=== PATIENT | male | born 1960 | race Two or more races ===

== ENCOUNTER 2025-05-06 20:41 | Emergency (ER) | payer MEDICARE, BC ==
[~2025-05-06] VITALS: Ht 172.7 cm; Wt 77.1 kg
[2025-05-06 21:47] LABS: CALCIUM, SERUM 7.8 mg/dL (8.5-10.1); CREATININE 0.8 mg/dL (0.6-1.3); SODIUM SERUM 145.0 mmol/L (136-145); UREA NITROGEN, BLOOD 7.0 mg/dL (7-18)
[2025-05-06] MEDS ORDERED: IBUP-1955 PO (21:58)
[2025-05-06] MEDS ORDERED: ACET-2030 PO (21:58)
[2025-05-06] MEDS ORDERED: MAGN100T PO (21:58)
[2025-05-06 23:02] VITALS: BP 109/68; TEMP 96; O2SAT 98
== END 2025-05-06 23:02 | disposition home or self-care (01) ==
LOC: ER 20:57
DX: S82.54XA Nondisplaced fracture of medial malleolus of right tibia, initial encounter for closed fracture (principal); S82.55XA Nondisplaced fracture of medial malleolus of left tibia, initial encounter for closed fracture; F10.20 Alcohol dependence, uncomplicated; R51.9 Headache, unspecified; W01.0XXA Fall on same level from slipping, tripping and stumbling without subsequent striking against object, initial encounter; Y93.89 Activity, other specified; Y92.89 Other specified places as the place of occurrence of the external cause; Y99.8 Other external cause status
CPT/HCPCS: 36415; 70450-TC; 72125-TC; 73610-TC; 80048-TC